=== PATIENT | female | born 1965 | race Caucasian/White ===

== ENCOUNTER 2016-11-03 15:55 | Emergency (ER) | payer MEDICAID ==
[~2016-11-03] VITALS: Ht 170.2 cm; Wt 68.1 kg
[~2016-11-03 15:55] MED LIST: ASPI81TA33 PO
[2016-11-03 17:17] VITALS: BP 131/81
== END 2016-11-03 17:53 | disposition home or self-care (01) ==
LOC: EMS 15:56
DX: R10.13 Epigastric pain (principal); T78.1XXA Other adverse food reactions, not elsewhere classified, initial encounter; Z90.710 Acquired absence of both cervix and uterus
CPT/HCPCS: 99281